=== PATIENT | female | born 1975 | race Caucasian/White ===

== ENCOUNTER 2018-10-29 16:04 | Inpatient (IN) | payer OTHER ==
[~2018-10-29] VITALS: Ht 160 cm; Wt 104.3 kg
== END 2018-11-29 18:03 | disposition home or self-care (01) | DRG 349 ==
LOC: O/R 11-28 06:30 → SURH 11-28 07:00
PROVIDERS: ADMIT Colon & Rectal Surgery
PROC: 0DBP7ZZ Excision of Rectum, Via Natural or Artificial Opening (ICD-10-PCS; principal; 2018-11-28 07:00)
DX: D12.8 Benign neoplasm of rectum (principal); D64.89 Other specified anemias; Z86.010 Personal history of colon polyps

== ENCOUNTER 2020-01-03 08:10 | Day surgery (SDC) | payer OTHER | END 2020-01-03 12:07 | disposition home or self-care (01) | LOC: AMB-ENDOS 08:10 | PROVIDERS: ATTEND Colon & Rectal Surgery | DX: K62.89 Other specified diseases of anus and rectum (principal); K64.1 Second degree hemorrhoids ==